=== PATIENT | male | born 1940 | race Caucasian/White ===

== ENCOUNTER 2016-06-19 15:12 | Inpatient (IN) | payer OTHER ==
[~2016-06-19] VITALS: Ht 170.2 cm; Wt 75.1 kg
[2016-06-19] MEDS ORDERED: OLAN10TA3 PO (15:19)
[2016-06-19] MEDS ORDERED: ALPR0.5T8 PO (15:19)
[2016-06-19] MEDS ORDERED: ESCI20TA PO (15:19)
[2016-06-19] MEDS ORDERED: LACO100 PO (15:19)
[2016-06-19 17:15] LABS: BASOPHILS % (AUTO) 0.6 % (0.0-2.0); EOSINOPHILS % (AUTO) 2.6 % (1.0-6.0); HEMATOCRIT 45.6 % (41-53); HEMOGLOBIN 15.1 g/dL (13.5-17.5); LYMPHOCYTES # (AUTO) 1.6 K/uL (1.0-4.8); MEAN CORPUSCULAR HEMOGLOBIN 31.4 pg (26.0-34.0); MEAN CORPUSCULAR HGB CONC 33.2 G/dL (31.0-37.0); MEAN CORPUSCULAR VOLUME 95 fL (80-100); MONOCYTES # (AUTO) 0.5 K/uL (0.1-1.0); MONOCYTES % (AUTO) 8.7 % (2.0-9.0); NEUTROPHILS % (AUTO) 57.1 % (40.0-70.0); PLATELET COUNT (AUTO) 156 K/uL (150-450); RED BLOOD CELL COUNT(AUTO) 4.81 MIL/uL (4.50-5.90); RED CELL DISTRIBUTION WIDTH 12.8 % (11.5-14.5); WHITE BLOOD COUNT (AUTO) 5.3 K/uL (4.5-11.0)
[2016-06-19 17:24] LABS: ANION GAP 9 mmol/L (8-16); CALCIUM, TOTAL 8.7 mg/dL (8.8-10.5); CARBON DIOXIDE 28 mmol/L (22-29); CHLORIDE 104 mmol/L (98-107); CREATININE 0.92 mg/dL (0.60-1.30); GLOMERULAR FILTR. RATE CALC > 60 mL/min (>60); POTASSIUM 3.9 mmol/L (3.5-5.1); SODIUM SERUM 141 mmol/L (136-145); UREA NITROGEN, BLOOD 16 mg/dL (7-18)
[2016-06-19 17:28] LABS: PROTHROMBIN TIME 10.7 SEC (9.4-11.6)
[2016-06-19 17:30] LABS: ALANINE AMINOTRANSFERASE 47 U/L (12-78); ALBUMIN 3.3 g/dL (3.4-5.0); ASPARTATE AMINOTRANSFERASE 34 U/L (15-37); BILIRUBIN,TOTAL 0.3 mg/dL (0.1-1.0); CREATINE KINASE, TOTAL 87 U/L (39-308); TOTAL PROTEIN, SERUM 7.2 g/dL (6.4-8.2)
[2016-06-19 17:36] LABS: TROPONIN I < 0.02 ng/mL (0.00-0.05)
[2016-06-19 17:46] LABS: AMMONIA 15 umol/L (11-32)
[2016-06-19 18:51] LABS: CREATINE KINASE MB 0.7 ng/mL (0-5)
[2016-06-19] MEDS ORDERED: 0.9% SODIUM CHLORIDE 10 ML SYRINGE IVP PRN (19:45)
[2016-06-19] MEDS ORDERED: ONDANSETRON HCL 4 MG/2 ML VIAL IVP PRN (19:45)
[2016-06-19] MEDS ORDERED: ACETAMINOPHEN 325 MG TABLET PO PRN (19:45)
[2016-06-19 19:50] LABS: APPEARANCE,URINE CLEAR (CLEAR); GLUCOSE, URINE (UA) NEGATIVE (NEGATIVE); KETONES,URINE NEGATIVE (NEGATIVE); LEUKOCYTE ESTERASE ,URINE NEGATIVE (NEGATIVE); OCCULT BLOOD,URINE NEGATIVE (NEGATIVE); PH,URINE 6.5 (5.0-8.0); PROTEIN,URINE NEGATIVE (NEGATIVE)
[2016-06-19 19:52] LABS: ADD UA MICROSCOPIC NO
[2016-06-19] MEDS ORDERED: SODIUM CHLORIDE 0.9% 1,000 ML IV ONE (21:00)
[2016-06-19] MEDS ORDERED: MAGNESIUM HYDROXIDE SUSPENSION 30 ML UDCUP PO PRN (21:00)
[2016-06-19] MEDS: DOCUSATE SODIUM 100 MG CAPSULE PO SCH ×2 (21:00→21:48)
[2016-06-19] MEDS: ASPIRIN 81 MG CHEWABLE TABLET PO SCH ×2 (21:00→21:48)
[2016-06-19 21:42] VITALS: BP 158/82
[2016-06-19] MEDS: ESCITALOPRAM OXALATE 20 MG TABLET PO SCH ×2 (22:00→22:06)
[2016-06-19] MEDS: LACOSAMIDE 100 MG TABLET PO SCH ×2 (22:00→22:06)
[2016-06-19] MEDS: OLANZapine 10 MG TABLET PO SCH ×2 (22:00→22:06)
[2016-06-19] MEDS ORDERED: ALPRAZolam 0.5 MG TABLET PO SCH (22:00)
[2016-06-19] MEDS ORDERED: LORazepam 2 MG/ML VIAL IM PRN (22:15)
[2016-06-19] MEDS ORDERED: ALPRAZolam 1 MG TABLET PO PRN (22:15)
[2016-06-19 23:44] VITALS: BP 148/70
[2016-06-20] VITALS (7 sets, daily range): BP systolic 141–158; BP diastolic 73–82
[2016-06-20] MEDS: LORazepam 2 MG/ML VIAL IVP PRN ×3 (04:44→20:07)
[2016-06-20] MEDS: HEPARIN SODIUM,PORCINE 5,000 UNITS/ML VIAL SQ SCH ×4 (09:10→23:36)
[2016-06-20] MEDS: PANTOPRAZOLE SODIUM 40 MG DR TABLET PO SCH (09:11)
[2016-06-20] MEDS: LACOSAMIDE 100 MG TABLET PO SCH ×2 (09:11→20:07)
[2016-06-20] MEDS: DOCUSATE SODIUM 100 MG CAPSULE PO SCH ×2 (09:11→20:13)
[2016-06-20] MEDS: ESCITALOPRAM OXALATE 20 MG TABLET PO SCH (20:07)
[2016-06-20] MEDS: OLANZapine 10 MG TABLET PO SCH (20:07)
[2016-06-20] MEDS: ASPIRIN 81 MG CHEWABLE TABLET PO SCH (20:13)
[2016-06-20] MEDS ORDERED: ALPRAZolam 1 MG TABLET PO SCH (21:00)
[2016-06-21 04:32] VITALS: BP 140/81
[2016-06-21 07:58] VITALS: BP 133/71
[2016-06-21] MEDS: HEPARIN SODIUM,PORCINE 5,000 UNITS/ML VIAL SQ SCH ×3 (08:58→23:47)
[2016-06-21] MEDS: PANTOPRAZOLE SODIUM 40 MG DR TABLET PO SCH (08:58)
[2016-06-21] MEDS: LACOSAMIDE 100 MG TABLET PO SCH ×2 (08:58→21:46)
[2016-06-21] MEDS: DOCUSATE SODIUM 100 MG CAPSULE PO SCH ×2 (08:59→21:46)
[2016-06-21 12:13] VITALS: BP 118/69
[2016-06-21 16:03] VITALS: BP 123/59
[2016-06-21 21:15] VITALS: BP 138/70
[2016-06-21] MEDS: LORazepam 2 MG/ML VIAL IM PRN (21:46)
[2016-06-21] MEDS: ASPIRIN 81 MG CHEWABLE TABLET PO SCH (21:46)
[2016-06-21] MEDS: QUEtiapine FUMARATE 25 MG TABLET PO SCH (21:47)
[2016-06-21] MEDS: ESCITALOPRAM OXALATE 20 MG TABLET PO SCH (21:47)
[2016-06-22 00:14] VITALS: BP 130/82
[2016-06-22] MEDS: LORazepam 2 MG/ML VIAL IM PRN ×2 (06:01→21:41)
[2016-06-22 07:35] VITALS: BP 112/73
[2016-06-22] MEDS: PANTOPRAZOLE SODIUM 40 MG DR TABLET PO SCH (08:44)
[2016-06-22] MEDS: DOCUSATE SODIUM 100 MG CAPSULE PO SCH ×2 (08:44→20:17)
[2016-06-22] MEDS: LACOSAMIDE 100 MG TABLET PO SCH ×2 (08:44→20:18)
[2016-06-22] MEDS: HEPARIN SODIUM,PORCINE 5,000 UNITS/ML VIAL SQ SCH ×3 (08:44→23:40)
[2016-06-22] MEDS: QUEtiapine FUMARATE 25 MG TABLET PO SCH ×3 (08:44→20:18)
[2016-06-22 11:00] VITALS: BP 140/72
[2016-06-22 15:11] VITALS: BP 124/71
[2016-06-22] MEDS: ASPIRIN 81 MG CHEWABLE TABLET PO SCH (20:17)
[2016-06-22] MEDS: ESCITALOPRAM OXALATE 20 MG TABLET PO SCH (20:17)
[2016-06-22 20:28] VITALS: BP 154/57
[2016-06-22] MEDS: HALOPERIDOL LACTATE 5 MG/ML VIAL IM PRN (21:40)
[2016-06-22 21:51] LABS: GLUCOSE,POINT OF CARE 136 MG/DL (70-110)
[2016-06-22 23:57] VITALS: BP 130/67
[2016-06-23 04:00] VITALS: BP 138/76
[2016-06-23 07:29] VITALS: BP 132/62
[2016-06-23] MEDS: HEPARIN SODIUM,PORCINE 5,000 UNITS/ML VIAL SQ SCH ×3 (08:44→23:56)
[2016-06-23] MEDS: LACOSAMIDE 100 MG TABLET PO SCH ×2 (08:44→21:14)
[2016-06-23] MEDS: DOCUSATE SODIUM 100 MG CAPSULE PO SCH ×2 (08:44→21:13)
[2016-06-23] MEDS: QUEtiapine FUMARATE 25 MG TABLET PO SCH ×3 (08:45→21:13)
[2016-06-23] MEDS: PANTOPRAZOLE SODIUM 40 MG DR TABLET PO SCH (08:45)
[2016-06-23 11:20] VITALS: BP 128/74
[2016-06-23 16:03] VITALS: BP 134/72
[2016-06-23 19:58] VITALS: BP 138/70
[2016-06-23] MEDS: ESCITALOPRAM OXALATE 20 MG TABLET PO SCH (21:14)
[2016-06-23] MEDS: ASPIRIN 81 MG CHEWABLE TABLET PO SCH (21:14)
[2016-06-23 23:06] VITALS: BP 125/70
[2016-06-24 04:10] VITALS: BP 158/84
[2016-06-24] MEDS: PANTOPRAZOLE SODIUM 40 MG DR TABLET PO SCH (12:09)
[2016-06-24] MEDS: LACOSAMIDE 100 MG TABLET PO SCH ×2 (12:09→20:20)
[2016-06-24] MEDS: QUEtiapine FUMARATE 25 MG TABLET PO SCH ×3 (12:09→20:20)
[2016-06-24] MEDS: DOCUSATE SODIUM 100 MG CAPSULE PO SCH ×2 (12:09→20:20)
[2016-06-24] MEDS: ACETAMINOPHEN 325 MG TABLET PO PRN (12:10)
[2016-06-24] MEDS: HEPARIN SODIUM,PORCINE 5,000 UNITS/ML VIAL SQ SCH ×3 (12:10→23:58)
[2016-06-24 12:13] VITALS: BP 157/84
[2016-06-24 15:58] VITALS: BP 114/69
[2016-06-24] MEDS: LORazepam 2 MG/ML VIAL IM PRN ×2 (17:36→23:01)
[2016-06-24] MEDS: HALOPERIDOL LACTATE 5 MG/ML VIAL IM PRN ×2 (18:18→23:01)
[2016-06-24] MEDS: ASPIRIN 81 MG CHEWABLE TABLET PO SCH (20:20)
[2016-06-24] MEDS: ESCITALOPRAM OXALATE 20 MG TABLET PO SCH (20:20)
[2016-06-24 21:14] VITALS: BP 138/63
[2016-06-24 23:19] VITALS: BP 122/60
[2016-06-25 04:00] VITALS: BP 128/68
[2016-06-25 07:27] LABS: BASOPHILS % (AUTO) 1.1 % (0.0-2.0); EOSINOPHILS % (AUTO) 1.18 % (1.0-6.0); HEMATOCRIT 46.9 % (41-53); HEMOGLOBIN 15.4 g/dL (13.5-17.5); LYMPHOCYTES # (AUTO) 1.7 K/uL (1.0-4.8); LYMPHOCYTES % (AUTO) 19.2 % (22.0-44.0); MEAN CORPUSCULAR HEMOGLOBIN 30.9 pg (26.0-34.0); MEAN CORPUSCULAR HGB CONC 32.9 G/dL (31.0-37.0); MEAN CORPUSCULAR VOLUME 94 fL (80-100); MONOCYTES % (AUTO) 11.3 % (2.0-9.0); NEUTROPHILS # (AUTO) 5.9 K/uL (1.8-7.7); NEUTROPHILS % (AUTO) 67.2 % (40.0-70.0); PLATELET COUNT (AUTO) 196 K/uL (150-450); RED BLOOD CELL COUNT(AUTO) 4.98 MIL/uL (4.50-5.90); RED CELL DISTRIBUTION WIDTH 13.5 % (11.5-14.5); WHITE BLOOD COUNT (AUTO) 8.8 K/uL (4.5-11.0)
[2016-06-25 07:30] VITALS: BP 126/69
[2016-06-25 07:41] LABS: ANION GAP 8 mmol/L (8-16); CALCIUM, TOTAL 9.4 mg/dL (8.8-10.5); CARBON DIOXIDE 28 mmol/L (22-29); CHLORIDE 103 mmol/L (98-107); CREATININE 0.94 mg/dL (0.60-1.30); GLOMERULAR FILTR. RATE CALC > 60 mL/min (>60); POTASSIUM 4.5 mmol/L (3.5-5.1); SODIUM SERUM 139 mmol/L (136-145); UREA NITROGEN, BLOOD 16 mg/dL (7-18)
[2016-06-25] MEDS: HEPARIN SODIUM,PORCINE 5,000 UNITS/ML VIAL SQ SCH ×3 (08:46→23:13)
[2016-06-25] MEDS: DOCUSATE SODIUM 100 MG CAPSULE PO SCH ×2 (08:46→19:45)
[2016-06-25] MEDS: LACOSAMIDE 100 MG TABLET PO SCH ×2 (08:46→23:13)
[2016-06-25] MEDS: PANTOPRAZOLE SODIUM 40 MG DR TABLET PO SCH (08:47)
[2016-06-25] MEDS: QUEtiapine FUMARATE 25 MG TABLET PO SCH ×3 (08:47→19:45)
[2016-06-25] MEDS: ACETAMINOPHEN 325 MG TABLET PO PRN (11:18)
[2016-06-25 11:25] VITALS: BP 120/68
[2016-06-25 15:50] VITALS: BP 124/66
[2016-06-25 19:23] VITALS: BP 146/76
[2016-06-25] MEDS: ESCITALOPRAM OXALATE 20 MG TABLET PO SCH (19:44)
[2016-06-25] MEDS: ASPIRIN 81 MG CHEWABLE TABLET PO SCH (19:45)
[2016-06-25] MEDS: LORazepam 2 MG/ML VIAL IM PRN (19:52)
[2016-06-26 04:46] VITALS: BP 132/69
[2016-06-26] MEDS: QUEtiapine FUMARATE 25 MG TABLET PO SCH ×3 (08:28→19:50)
[2016-06-26] MEDS: LACOSAMIDE 100 MG TABLET PO SCH ×2 (08:28→19:50)
[2016-06-26] MEDS: DOCUSATE SODIUM 100 MG CAPSULE PO SCH ×2 (08:28→19:51)
[2016-06-26] MEDS: HEPARIN SODIUM,PORCINE 5,000 UNITS/ML VIAL SQ SCH ×3 (08:31→23:08)
[2016-06-26] MEDS: PANTOPRAZOLE SODIUM 40 MG DR TABLET PO SCH (08:31)
[2016-06-26 08:38] VITALS: BP 156/58
[2016-06-26 15:30] VITALS: BP 144/70
[2016-06-26] MEDS: ESCITALOPRAM OXALATE 20 MG TABLET PO SCH (19:50)
[2016-06-26] MEDS: ASPIRIN 81 MG CHEWABLE TABLET PO SCH (19:51)
[2016-06-26 20:11] VITALS: BP 127/66
[2016-06-26] MEDS: LORazepam 2 MG/ML VIAL IM PRN (21:00)
[2016-06-26] MEDS: ACETAMINOPHEN 325 MG TABLET PO PRN (23:07)
[2016-06-26] MEDS: HALOPERIDOL LACTATE 5 MG/ML VIAL IM PRN (23:09)
[2016-06-27] VITALS (7 sets, daily range): BP systolic 104–150; BP diastolic 67–85
[2016-06-27] MEDS: LORazepam 2 MG/ML VIAL IM PRN ×2 (01:05→14:26)
[2016-06-27] MEDS: DOCUSATE SODIUM 100 MG CAPSULE PO SCH ×2 (10:26→20:22)
[2016-06-27] MEDS: QUEtiapine FUMARATE 25 MG TABLET PO SCH ×3 (10:26→20:22)
[2016-06-27] MEDS: PANTOPRAZOLE SODIUM 40 MG DR TABLET PO SCH (10:26)
[2016-06-27] MEDS: LACOSAMIDE 100 MG TABLET PO SCH ×2 (10:26→20:22)
[2016-06-27] MEDS: HEPARIN SODIUM,PORCINE 5,000 UNITS/ML VIAL SQ SCH ×2 (10:27→16:47)
[2016-06-27] MEDS: ASPIRIN 81 MG CHEWABLE TABLET PO SCH (20:23)
[2016-06-27] MEDS: ESCITALOPRAM OXALATE 20 MG TABLET PO SCH (20:23)
[2016-06-28] MEDS: HEPARIN SODIUM,PORCINE 5,000 UNITS/ML VIAL SQ SCH ×4 (00:01→23:21)
[2016-06-28 05:42] VITALS: BP 149/71
[2016-06-28 08:02] VITALS: BP 145/75
[2016-06-28] MEDS: DOCUSATE SODIUM 100 MG CAPSULE PO SCH ×2 (09:39→20:08)
[2016-06-28] MEDS: PANTOPRAZOLE SODIUM 40 MG DR TABLET PO SCH (09:39)
[2016-06-28] MEDS: QUEtiapine FUMARATE 25 MG TABLET PO SCH ×3 (09:39→20:08)
[2016-06-28] MEDS: LACOSAMIDE 100 MG TABLET PO SCH ×2 (09:39→20:08)
[2016-06-28 11:32] VITALS: BP 145/72
[2016-06-28] MEDS: LORazepam 2 MG/ML VIAL IM PRN ×2 (14:26→20:08)
[2016-06-28 15:23] VITALS: BP 140/75
[2016-06-28] MEDS: HALOPERIDOL LACTATE 5 MG/ML VIAL IM PRN (16:57)
[2016-06-28 19:30] VITALS: BP 137/67
[2016-06-28] MEDS: ASPIRIN 81 MG CHEWABLE TABLET PO SCH (20:08)
[2016-06-28] MEDS: ESCITALOPRAM OXALATE 20 MG TABLET PO SCH (20:08)
[2016-06-29 00:16] VITALS: BP 138/59
[2016-06-29 04:06] VITALS: BP 136/56
[2016-06-29 07:18] VITALS: BP 148/52
[2016-06-29] MEDS: HEPARIN SODIUM,PORCINE 5,000 UNITS/ML VIAL SQ SCH ×2 (08:37→16:18)
[2016-06-29] MEDS: PANTOPRAZOLE SODIUM 40 MG DR TABLET PO SCH (08:38)
[2016-06-29] MEDS: DOCUSATE SODIUM 100 MG CAPSULE PO SCH ×2 (08:38→20:59)
[2016-06-29] MEDS: LACOSAMIDE 100 MG TABLET PO SCH ×2 (08:38→20:58)
[2016-06-29] MEDS: QUEtiapine FUMARATE 25 MG TABLET PO SCH ×3 (08:38→20:58)
[2016-06-29] MEDS: HALOPERIDOL LACTATE 5 MG/ML VIAL IM PRN (09:13)
[2016-06-29] MEDS: LORazepam 2 MG/ML VIAL IM PRN (10:55)
[2016-06-29 12:15] VITALS: BP 139/52
[2016-06-29] MEDS ORDERED: DiphenhydrAMINE HCL 50 MG/ML VIAL IM PRN (12:45)
[2016-06-29] MEDS ORDERED: CeFAZolin 1 GM/DEXTROSE 50 ML IV SCH (13:00)
[2016-06-29 15:57] VITALS: BP 118/63
[2016-06-29] MEDS: ESCITALOPRAM OXALATE 20 MG TABLET PO SCH (20:58)
[2016-06-29] MEDS: ASPIRIN 81 MG CHEWABLE TABLET PO SCH (20:58)
[2016-06-29] MEDS ORDERED: SULFAMETHOX/TRIMETH DS 800-160 MG/TABLET PO SCH (21:00)
[2016-06-29 21:08] VITALS: BP 128/76
[2016-06-30] VITALS (7 sets, daily range): BP systolic 98–118; BP diastolic 55–62
[2016-06-30] MEDS: HEPARIN SODIUM,PORCINE 5,000 UNITS/ML VIAL SQ SCH ×3 (00:05→16:00)
[2016-06-30] MEDS: PANTOPRAZOLE SODIUM 40 MG DR TABLET PO SCH (08:16)
[2016-06-30] MEDS: LACOSAMIDE 100 MG TABLET PO SCH ×2 (08:16→21:15)
[2016-06-30] MEDS: DOCUSATE SODIUM 100 MG CAPSULE PO SCH ×2 (08:16→21:15)
[2016-06-30] MEDS: QUEtiapine FUMARATE 25 MG TABLET PO SCH ×3 (08:17→21:15)
[2016-06-30] MEDS: ESCITALOPRAM OXALATE 20 MG TABLET PO SCH (21:15)
[2016-06-30] MEDS: ASPIRIN 81 MG CHEWABLE TABLET PO SCH (21:15)
[2016-07-01] MEDS: HEPARIN SODIUM,PORCINE 5,000 UNITS/ML VIAL SQ SCH ×3 (00:06→16:30)
[2016-07-01 04:52] VITALS: BP 112/68
[2016-07-01] MEDS: PANTOPRAZOLE SODIUM 40 MG DR TABLET PO SCH (07:55)
[2016-07-01] MEDS: DOCUSATE SODIUM 100 MG CAPSULE PO SCH ×2 (07:55→20:17)
[2016-07-01] MEDS: QUEtiapine FUMARATE 25 MG TABLET PO SCH ×3 (07:56→20:16)
[2016-07-01] MEDS: LACOSAMIDE 100 MG TABLET PO SCH ×2 (07:56→20:16)
[2016-07-01 07:58] VITALS: BP 134/73
[2016-07-01 11:06] VITALS: BP 156/71
[2016-07-01] MEDS: HALOPERIDOL LACTATE 5 MG/ML VIAL IM PRN (16:48)
[2016-07-01 20:15] VITALS: BP 137/66
[2016-07-01] MEDS: ESCITALOPRAM OXALATE 20 MG TABLET PO SCH (20:16)
[2016-07-01] MEDS: ASPIRIN 81 MG CHEWABLE TABLET PO SCH (20:17)
[2016-07-01] MEDS: LORazepam 2 MG/ML VIAL IM PRN (20:28)
[2016-07-02] MEDS: HEPARIN SODIUM,PORCINE 5,000 UNITS/ML VIAL SQ SCH ×2 (00:30→08:49)
[2016-07-02 05:45] VITALS: BP 120/61
[2016-07-02 07:19] VITALS: BP 129/63
[2016-07-02] MEDS: DOCUSATE SODIUM 100 MG CAPSULE PO SCH (08:48)
[2016-07-02] MEDS: PANTOPRAZOLE SODIUM 40 MG DR TABLET PO SCH (08:48)
[2016-07-02] MEDS: QUEtiapine FUMARATE 25 MG TABLET PO SCH (08:48)
[2016-07-02] MEDS: LACOSAMIDE 100 MG TABLET PO SCH (08:49)
[2016-07-02 11:16] VITALS: BP 119/61
== END 2016-07-02 16:05 | DRG 312 ==
LOC: EMS 15:14 → 5N 19:58 → 6N 06-21 15:15
PROVIDERS: ADMIT Internal Medicine; ATTEND Internal Medicine
DX: R55 Syncope and collapse (principal); E44.1 Mild protein-calorie malnutrition; F03.90 Unspecified dementia, unspecified severity, without behavioral disturbance, psychotic disturbance, mood disturbance, and anxiety; F29 Unspecified psychosis not due to a substance or known physiological condition; R00.1 Bradycardia, unspecified; Z79.899 Other long term (current) drug therapy; Z87.820 Personal history of traumatic brain injury; Z78.1 Physical restraint status; Z68.25 Body mass index [BMI] 25.0-25.9, adult
CPT/HCPCS: 70450; 72125; 82962; 87081; 92610; 93005; 93306; 93880; 97161; 97162; 99285; J0690; J1200; J1630; J1644; J2060; J7030